=== PATIENT | female | born 1955 | race African-American/Black ===

== ENCOUNTER → 2017-10-26 | Outpatient (CLI) | payer BC ==
[2017-08-14 09:48] VITALS: BP 195/80
[~2017-10-26] MED LIST: LEVO175T5 PO; LOSA100T7 PO; METF500T9 PO
--- NOTE | 2017-10-26 16:23 | RAD ---
EXAM: Abdomen, single view. HISTORY: Nephrolithiasis. COMPARISON: 08/13/2017 FINDINGS: Frontal views of the abdomen and pelvis are obtained. No renal or ureteral stone is seen radiographically. There is stool and gas within the colon. There is no evidence of bowel obstruction. There is lumbar scoliosis and multilevel degenerative change within the lumbar spine. IMPRESSION: 1. No radiodense renal or ureteral stone. 2. Nonobstructive bowel gas pattern. Electronically signed by: Vanda Collins MD (10/26/2017 4:20 PM) [id number]
== END | disposition home or self-care (01) ==
LOC: RAD 15:45
PROVIDERS: ATTEND Urology
DX: M47.896 Other spondylosis, lumbar region (principal); M41.86 Other forms of scoliosis, lumbar region; I10 Essential (primary) hypertension; Z87.442 Personal history of urinary calculi; Z90.710 Acquired absence of both cervix and uterus; Z82.49 Family history of ischemic heart disease and other diseases of the circulatory system
CPT/HCPCS: 36415; 74018; 84550

== ENCOUNTER 2019-09-02 05:46 | Emergency (ER) | payer BC ==
[~2019-09-02] VITALS: Ht 170.2 cm; Wt 131.8 kg
[~2019-09-02 05:46] MED LIST changes: +LOSA100T14 PO; -LOSA100T7 PO; +METF-658 PO; -METF500T9 PO
[2019-09-02 06:26] LABS: BASO % 1 % (0-3); EOS % 0 % (0-3); HEMATOCRIT 33.2 % (36.0-47.0); HEMOGLOBIN 10.5 g/dL (12.0-15.5); LYMPH # 1.2 x10^3/uL (1.0-4.8); LYMPH % 12 % (24-48); MEAN CORPUSCULAR HEMOGLOBIN 19 pg (25-35); MEAN CORPUSCULAR HGB CONC 32 g/dL (31-37); MEAN CORPUSCULAR VOLUME 61 fL (79-100); MONO # 0.3 x10^3/uL (0.0-1.1); MONO % 3 % (0-9); NEUT # 8.3 x10^3/uL (1.8-7.7); NEUT % 84 % (31-73); PLATELET COUNT 273 x10^3/uL (140-400); RED BLOOD COUNT 5.47 x10^6/uL (3.50-5.40); RED CELL DISTRIBUTION WIDTH 16.1 % (11.5-14.5); WHITE BLOOD COUNT 9.9 x10^3/uL (4.0-11.0)
[2019-09-02 06:27] LABS: CALCIUM 9.6 mg/dL (8.5-10.1); GFR 30.3; POTASSIUM 4.2 mmol/L (3.5-5.1)
[2019-09-02 06:34] LABS: ALBUMIN 3.7 g/dL (3.4-5.0); ALBUMIN/GLOBULIN RATIO 0.9 (1.0-1.7); TOTAL BILIRUBIN 0.6 mg/dL (0.2-1.0); TOTAL PROTEIN 7.9 g/dL (6.4-8.2)
--- NOTE | 2019-09-02 06:59 | PHYS DOC ---
Past Medical History Past Medical History: Diabetes-Type II, Hypertension, Hypothyroid Additional Past Medical Histor: MORBID OBESITY Past Surgical History: Hysterectomy, Other Additional Past Surgical Histo: Thyroidectomy, cyst right wrist, knee surgery Smoking Status: Never Smoker Alcohol Use: None Drug Use: None General Adult EDM: Chief Complaint: ABDOMINAL PAIN HPI: HPI: Patient is a 64 year old female who presents with right lower quadrant abdo nadia pain. Patient states that the pain started at 11:00 last night. She woke up at 3:00 this morning with vomiting and has had 4 episodes of vomiting since that time. She has been having some constipation for the last 3 days. Pain is in the right lower quadrant and feels sharp and crampy. She states it feels somewhat like when she had a kidney stone. She denies any fever, chills, sweats, hematuria, dysuria, vaginal bleeding, vaginal discharge, chest pain, shortness of breath. Review of Systems: Review of Systems: General: Denies fever, chills, sweats, fatigue Eyes: Denies drainage, blurred vision, eye redness HENT: Denies rhinorrhea, sore throat, earache Respiratory: Denies cough, shortness of breath, wheezing Cardiac: Denies edema, palpitations, chest pain GI: Reports nausea, vomiting, abdominal pain, constipation MSK: Denies neck pain[] Skin: Denies rash, jaundice Neuro: Denies headache, dizziness Psychiatric: Denies SI/HI Heart Score: Risk Factors: Risk Factors: DM, Current or recent (<one month) smoker, HTN, HLP, family history of CAD, obesity. Risk Scores: Score 0 - 3: 2.5% MACE over next 6 weeks - Discharge Home Score 4 - 6: 20.3% MACE over next 6 weeks - Admit for Clinical Observation Score 7 - 10: 72.7% MACE over next 6 weeks - Early Invasive Strategies Current Medications: Current Medications Medications (Trade) Dose Ordered Sig/Vesta Start Time Stop Time Status Last Admin Dose Admin Morphine Sulfate (Morphine Sulfate) 5 mg 1X ONCE 09/02/19 07:00 09/02/19 07:01 Ondansetron HCl (Zofran) 4 mg 1X ONCE 09/02/19 07:00 09/02/19 07:01 Sodium Chloride 1,000 ml @ 30 mls/hr 1X ONCE 09/02/19 07:00 09/03/19 16:19 Allergies: Allergies: Allergies Coded Allergies Type Severity Reaction Last Updated Verified No Known Drug Allergies 08/12/17 No Physical Exam: PE: General: Awake, alert, NAD. Well Nourished, well hydrated. Cooperative HEENT: Atraumatic, EOMI, PERRL, airway patent, moist oral mucosa Neck: Supple, trachea midline Respiratory: CTA bilaterally, normal effort, no wheezing/crackles CV: RRR, no murmur, cap refill <2 GI: Soft, nondistended, right lower quadrant abdominal tenderness, no masses MSK: No obvious deformities Skin: Warm, dry, intact Neuro: A&O x3, speech NL, sensory and motor grossly intact, no focal deficits Psych: Normal affect, normal mood, not suicidal or homicidal Current Patient Data: Labs: Laboratory Tests Test 09/02/19 06:00 White Blood Count 9.9 x10^3/uL (4.0-11.0) Red Blood Count 5.47 x10^6/uL (3.50-5.40) H Hemoglobin 10.5 g/dL (12.0-15.5) L Hematocrit 33.2 % (36.0-47.0) L Mean Corpuscular Volume 61 fL (79-100) L Mean Corpuscular Hemoglobin 19 pg (25-35) L Mean Corpuscular Hemoglobin Concent 32 g/dL (31-37) Red Cell Distribution Width 16.1 % (11.5-14.5) H Platelet Count 273 x10^3/uL (140-400) Neutrophils (%) (Auto) 84 % (31-73) H Lymphocytes (%) (Auto) 12 % (24-48) L Monocytes (%) (Auto) 3 % (0-9) Eosinophils (%) (Auto) 0 % (0-3) Basophils (%) (Auto) 1 % (0-3) Neutrophils # (Auto) 8.3 x10^3/uL (1.8-7.7) H Lymphocytes # (Auto) 1.2 x10^3/uL (1.0-4.8) Monocytes # (Auto) 0.3 x10^3/uL (0.0-1.1) Eosinophils # (Auto) 0.0 x10^3/uL (0.0-0.7) Basophils # (Auto) 0.0 x10^3/uL (0.0-0.2) Platelet Estimate Pending Sodium Level 138 mmol/L (136-145) Potassium Level 4.2 mmol/L (3.5-5.1) Chloride Level 103 mmol/L (98-107) Carbon Dioxide Level 26 mmol/L (21-32) Anion Gap 9 (6-14) Blood Urea Nitrogen 26 mg/dL (7-20) H Creatinine 2.0 mg/dL (0.6-1.0) H Estimated GFR (Cockcroft-Gault) 30.3 BUN/Creatinine Ratio 13 (6-20) Glucose Level 180 mg/dL (70-99) H Calcium Level 9.6 mg/dL (8.5-10.1) Total Bilirubin 0.6 mg/dL (0.2-1.0) Aspartate Amino Transferase (AST) 17 U/L (15-37) Alanine Aminotransferase (ALT) 22 U/L (14-59) Alkaline Phosphatase 78 U/L (46-116) Total Protein 7.9 g/dL (6.4-8.2) Albumin 3.7 g/dL (3.4-5.0) Albumin/Globulin Ratio 0.9 (1.0-1.7) L Lipase 138 U/L (73-393) Laboratory Tests 09/02/19 06:00 Laboratory Tests 09/02/19 06:00 Vital Signs: Vital Signs Date Time Temp Pulse Resp B/P (MAP) Pulse Ox O2 Delivery O2 Flow Rate FiO2 09/02/19 06:19 98.4 80 18 211/99 (136) 100 Room Air 98.4 EKG: EKG: [] Radiology/Procedures: Radiology/Procedures: [] Course & Med Decision Making: Course & Med Decision Making Pertinent Labs and Imaging studies reviewed. (See chart for details) Patient is a 64 year-old female with a history of diabetes and high blood pressure who presents to the Emergency Room complaining of abdominal pain, vomiting. On exam, patient has right lower quadrant abdominal tenderness. Due to patients history, age, and exam work up will need to be done to evaluate for intra-abdominal pathology. Work up ordered includes CBC, CMP, lipase, UA, CT abdomen and pelvis. Patient's pain is not epigastric and a cardiac evaluation will not be needed for atypical pain. Ddx includes kidney stone, constipation, appendicitis, gastroenteritis, hyperglycemia. Work up was reviewed and CT shows kidney stone. Patient received fluids and morphine. She will be discharged home on Percocet and flomax. She will follow up in 2 days. Patient's test results and vitals while in the ED were fully reviewed and discussed with the patient. Patient is stable and at this time does not need admission to the hospital. We have discussed strict return precautions and the importance of following up with their Primary Care Physician. Patient stated understanding and was given an opportunity to ask any questions. Patient is in agreement with plan. Dragon Disclaimer: Dragon Disclaimer: This electronic medical record was generated, in whole or in part, using a voice recognition dictation system. Departure Departure Impression: Primary Impression: Kidney stone Disposition: HOME, SELF-CARE Condition: GOOD Referrals: MEGHANN SAL (PCP) Patient Instructions: Kidney Stones Scripts Tamsulosin Hcl (FLOMAX) 0.4 Mg Cap.er.24h 1 CAP PO DAILY, #14 CAP 0 Refills Prov: JACOB JAIME MD 09/02/19 Oxycodone/Apap 5-325 (PERCOCET 5-325 MG TABLET ) 1 Each Tablet 1 TAB PO PRN Q6HRS PRN for PAIN, #10 TAB 0 Refills Prov: JACOB JAIME MD 09/02/19 Justicifation of Admission Dx: Justifications for Admission: Justification of Admission Dx: No JACOB JAIME MD Sep 02, 2019 06:59
[2019-09-02] MEDS ORDERED: IV NORMAL SALINE 1000ML BAG 1,000 ML IV ONE (07:00)
[2019-09-02] MEDS ORDERED: ONDANSETRON PF 4 MG/2 ML VIAL. IVP ONE (07:00)
[2019-09-02] MEDS ORDERED: MORPHINE SULFATE 10 MG/ML VIAL. IV ONE (07:00)
[2019-09-02] MEDS ORDERED: IOHEXOL 240 MG/ML 50ML VIAL. PO ONE (07:15)
[2019-09-02] MEDS ORDERED: CONTRAST GIVEN. MC PRN (07:15)
[2019-09-02 07:54] LABS: BILIRUBIN,URINE NEGATIVE (NEG); CLARITY,URINE CLEAR; COLOR,URINE YELLOW; NITRITE,URINE NEGATIVE (NEG); PROTEIN,URINE NEGATIVE (NEG-TRACE)
[2019-09-02 08:15] LABS: BACTERIA,URINE 0 /HPF (0-FEW); SQUAMOUS EPITHELIAL CELL,UR MOD /LPF; WBC,URINE OCC /HPF (0-4)
--- NOTE | 2019-09-02 08:32 | RAD ---
Study: CT abdomen/pelvis without intravenous contrast Indication: Right lower quadrant abdominal pain. Vomiting. Comparison: 08/12/2017 Technique: Helical CT imaging performed of the abdomen and pelvis without the use of intravenous contrast. Sagittal and coronal reformats were obtained. One or more of the following individualized dose reduction techniques were utilized for this examination: 1. Automated exposure control 2. Adjustment of the mA and/or kV according to patient size 3. Use of iterative reconstruction technique. Findings: Inherently limited evaluation without intravenous contrast. Small hiatal hernia. No newly seen abnormality at the lower lungs. A small soft tissue nodule at the medial aspect of the right breast, image 4 series 2 measures 8 mm on the current study compared to 6 mm in 2018. No newly seen abnormality of the liver. The gallbladder is partially collapsed. No CT evidence for acute cholecystitis. Fatty atrophy of the pancreas. Within normal limits spleen. No adrenal gland mass. Perinephric fatty stranding on the right. Right-sided caliectasis and minimal prominence of the renal pelvis in the setting of a newly seen nephrolithiasis at the ureteropelvic junction measuring 4 mm. Additional punctate intrarenal stone at the lower pole the right kidney. Subcentimeter intrinsically dense cyst on the right is unchanged. Exophytic left renal cyst has slightly increased in size but still measures less than 10 Hounsfield units. A few millimetric intrarenal stones on the left. No hydroureteronephrosis on the left. Absent uterus. No adnexal mass. Colonic diverticulosis without diverticulitis. The appendix is well-visualized and is normal. Nonobstructed small bowel. Unremarkable stomach. Nonaneurysmal aorta. No lymphadenopathy. No free fluid or gas. No acute or aggressive osseous process. Multifactorial degenerative changes scattered throughout the spinal column greatest at the lower lumbar spine. Osseous neural foraminal encroachment is greatest on the right at L4-L5. Relatively mild bilateral hip arthrosis. Impression: 1. Mild collecting system dilatation on the right in the setting of a 4 mm nephrolithiasis obstructing the ureteropelvic junction (image 42 series 2). Resultant perinephric inflammation. Several additional nonobstructing intrarenal stones bilaterally. 2. In the setting of reported right lower quadrant pain the appendix is normal. Scattered colonic diverticuli without diverticulitis. 3. Slight interval enlargement of a nodule at the medial right breast now measuring 8 mm compared to 6 mm. If not recently performed mammographic assessment is recommended. Electronically signed by: SHAKA DOLAN MD (09/02/2019 8:29 AM) [id number]
[2019-09-02] MEDS ORDERED: KETOROLAC 30 MG/ML VIAL. IVP ONE (08:45)
[2019-09-02 09:11] LABS: ANISOCYTOSIS PRESENT; HYPOCHROMIA PRESENT; PLT ESTIMATE ADEQUATE (ADEQUATE); POIKILOCYTOSIS PRESENT
[2019-09-02] MEDS ORDERED: TAMS0.4C97 PO (09:18)
[2019-09-02] MEDS ORDERED: OXYC1TAB15 PO (09:18)
[2019-09-02 09:19] VITALS: BP 184/88
[2019-09-02] MEDS ORDERED: LACT20SO PO (09:39)
[2019-09-02] MEDS ORDERED: ONDA4TAB7 PO (09:39)
== END 2019-09-02 09:49 | disposition home or self-care (01) ==
LOC: ER 05:46
DX: N20.0 Calculus of kidney (principal); E11.9 Type 2 diabetes mellitus without complications; I10 Essential (primary) hypertension; E03.9 Hypothyroidism, unspecified
CPT/HCPCS: 36415; 74176; 80053; 81001; 83690; 85025; 96374; 96375; 99284; J1885; J2270; J2405; J7030; Q9966